=== PATIENT | male | born 1970 ===

== ENCOUNTER 2020-06-15 11:00 | Inpatient (IN) | payer OTHER ==
[~2020-06-15] VITALS: Ht 185.4 cm; Wt 113.4 kg
[2020-06-15] MEDS ORDERED: PROTONIX20 MG PO (14:01)
== END 2020-06-22 16:37 | disposition home or self-care (01) | DRG 331 ==
LOC: SURH 06-20 06:00 → O/R 06-20 06:00 → SURH 06-20 11:00
PROVIDERS: ADMIT Colon & Rectal Surgery; ATTEND Colon & Rectal Surgery
PROC: 07TB4ZZ Resection of Mesenteric Lymphatic, Percutaneous Endoscopic Approach (ICD-10-PCS; 2020-06-20)
PROC: 0DTU4ZZ Resection of Omentum, Percutaneous Endoscopic Approach (ICD-10-PCS; 2020-06-20)
PROC: 0DTF4ZZ Resection of Right Large Intestine, Percutaneous Endoscopic Approach (ICD-10-PCS; principal; 2020-06-20 15:00)
DX: D12.2 Benign neoplasm of ascending colon (principal); R59.0 Localized enlarged lymph nodes; K66.8 Other specified disorders of peritoneum

== ENCOUNTER 2021-07-20 07:45 | Day surgery (SDC) | payer OTHER ==
[~2021-07-20 07:45] MED LIST: PROTONIX20 MG PO
== END 2021-07-20 11:40 | disposition home or self-care (01) ==
LOC: AMB-ENDOS 07:45
PROVIDERS: ATTEND Colon & Rectal Surgery
DX: D13.39 Benign neoplasm of other parts of small intestine (principal); K64.1 Second degree hemorrhoids; Z20.822 Contact with and (suspected) exposure to COVID-19